=== PATIENT | male | born 1975 | race Caucasian/White ===

== ENCOUNTER 2023-08-11 16:44 | Emergency (ER) | payer MEDICAID ==
[~2023-08-11] VITALS: Ht 182.9 cm; Wt 94.3 kg
[2023-08-11 16:45] VITALS: BP_SYST 128; PULSE 103; RESP 18; TEMP 98; O2SAT 98
[2023-08-11] MEDS ORDERED: NABU-140 PO (17:13)
[2023-08-11] MEDS ORDERED: CLIN-142 PO (17:13)
[2023-08-11 17:38] VITALS: BP_SYST 128; PULSE 103; RESP 18; TEMP 98; O2SAT 98
== END 2023-08-11 17:37 | disposition home or self-care (01) ==
LOC: SED 16:44
DX: K04.7 Periapical abscess without sinus (principal); Z79.899 Other long term (current) drug therapy
CPT/HCPCS: 99283